=== PATIENT | female | born 1965 | race Caucasian/White ===

== ENCOUNTER → 2016-11-02 11:09 | Outpatient (CLI) | payer BC ==
[2016-11-02 12:00] LABS: CALC OSMOLALITY 273 mosm/kg (275-300); CALCIUM 8.3 mg/dL (8.5-10.1); CHLORIDE - SERUM 101 mmol/L (98-107); CREATININE - SERUM 0.8 mg/dL (0.6-1.3); GLUCOSE 105 mg/dL (74-106); POTASSIUM - SERUM 3.9 mmol/L (3.5-5.1); SODIUM 136 mmol/L (136-145); UREA NITROGEN 19 mg/dL (7-18); VANCOMYCIN - TROUGH 16.1 ug/mL (10.0-20.0); eGFR NON AFRICAN AMERICAN 80 mL/min (90-120)
== END | disposition home or self-care (01) ==
LOC: D.LABREF 11:09
DX: I33.0 Acute and subacute infective endocarditis (principal); I63.9 Cerebral infarction, unspecified

== ENCOUNTER → 2016-11-08 10:57 | Outpatient (CLI) | payer BC ==
[2016-11-08 11:40] LABS: ANION GAP 13.6 mmol/L (8-16); CALCIUM 8.1 mg/dL (8.5-10.1); CARBON DIOXIDE 27.9 mmol/L (21.0-32.0); POTASSIUM - SERUM 3.5 mmol/L (3.5-5.1); VANCOMYCIN - TROUGH 19.9 ug/mL (10.0-20.0)
== END | disposition home or self-care (01) ==
LOC: D.LABREF 10:57
PROVIDERS: Internal Medicine
DX: I63.9 Cerebral infarction, unspecified (principal); I33.0 Acute and subacute infective endocarditis

== ENCOUNTER → 2016-11-15 14:46 | Outpatient (CLI) | payer BC ==
[2016-11-15 15:23] LABS: CALCIUM 7.8 mg/dL (8.5-10.1); CARBON DIOXIDE 28.8 mmol/L (21.0-32.0); CREATININE - SERUM 1.2 mg/dL (0.6-1.3); POTASSIUM - SERUM 3.8 mmol/L (3.5-5.1); VANCOMYCIN - TROUGH 25.4 ug/mL (10.0-20.0)
== END | disposition home or self-care (01) ==
LOC: D.LABREF 14:46
PROVIDERS: Internal Medicine
DX: I33.0 Acute and subacute infective endocarditis (principal); Z45.2 Encounter for adjustment and management of vascular access device

== ENCOUNTER → 2016-11-22 21:35 | Outpatient (CLI) | payer BC ==
[2016-11-23 00:34] LABS: ANION GAP 14.2 mmol/L (8-16); CALCIUM 8.4 mg/dL (8.5-10.1); CREATININE - SERUM 1.2 mg/dL (0.6-1.3); POTASSIUM - SERUM 4.2 mmol/L (3.5-5.1); VANCOMYCIN - TROUGH 22.1 ug/mL (10.0-20.0)
== END | disposition home or self-care (01) ==
LOC: D.LABREF 21:35
PROVIDERS: Internal Medicine
DX: I33.0 Acute and subacute infective endocarditis (principal)